=== PATIENT | female | born 1975 | race Caucasian/White ===

== ENCOUNTER 2018-12-06 19:28 | Emergency (ER) | payer OTHER ==
[2018-12-06 19:53] LABS: Pregnancy Test - Urine (BHCG) Negative (Negative); Pregu Control Background? CLEAR/WHITE (CLR/WHITE); Pregu Control Bar Appear? YES (CONTROL BAR); Specific Gravity 1.008 (1.002-1.036)
--- NOTE | 2018-12-06 20:51 | CT ---
CT PELVIS WITHOUT CONTRAST 12/06/18 Axial slices were acquired, then coronal and sagittal reconstructions were done. There is a fracture through the left sacral ala of S1. It is vertically oriented and does not appear to involve the foramen. The fragments are relatively nondisplaced. One of the fracture lines does ext end slightly into S1. The SI joints are symmetrical and show no widening. The pubic symphysis shows no widening. The pubic rings appear intact. The proximal right femur appears normal. There is a left hip arthroplasty. IMPRESSION: Acute vertical fracture of the left sacral ala of S1 with slight extension into S2. Findings discussed with Dr. Virgen at 2030 on 12/06/18. POS: HOME
--- NOTE | 2018-12-06 20:57 | CT ---
CT LUMBAR SPINE 12/06/[address] of the lumbar spine was done following trauma. Axial slices were acquired, then coronal and sagittal reconstructions were done. The patient has rotoscoliosis, convexed right. No fractures of the lumbar spine proper were seen. No focal disc herniations or foraminal stenosis was seen. No focal disc herniations or foraminal stenosi s was seen. There is some mild central canal stenosis at L4-L5 due to a concentric bulge of the disc and some mild facet and ligamentous hypertrophy. There is some mild concentric bulging of the L5-S1 d isc. A fracture through the left sacral ala of S1 is present with little displacement. The foramina do not appear involved. Some images show a minimal extension into S2. There is no sign of pelvic hematoma or free fluid of concern. IMPRESSION: 1. Fracture of the left sacral ala of S1 with minimal displacement. Minor extension into S2. 2. Mild central canal stenosis at L4-L5. Findings discussed with Dr. Virgen at 2030 on 12/06/18. POS: HOME
[2018-12-06] MEDS ORDERED: Acetaminophen/Codeine 30-300mg Tablet ONE (21:01)
[2018-12-06] MEDS ORDERED: Ondansetron ODT 4 MG TAB ONE (21:01)
[2018-12-06 22:38] LABS: Bilirubin Negative (Negative); Blood, Urine Negative (Negative); Clarity Clear (Clear); Glucose, Urine (Dipstick) Negative (Negative); Leukocyte Trace (Negative); Nitrite Negative (Negative); Protein, Urine (Dipstick) Negative (Neg-Trace); Specific Gravity, Urine 1.015 (1.005-1.030); Urobilinogen 0.2 mg/dL (0.2-1.0); pH, Urine 8.5 (5.0-9.0)
[2018-12-06 22:39] LABS: Urine Culture Reflex No No
[2018-12-06 22:44] LABS: RBC/HPF 0-3 HPF (0-3); Squamous Epithelial 0-3 HPF (0-3); WBC/HPF 0-3 HPF (0-3)
== END 2018-12-06 22:08 | disposition home or self-care (01) ==
LOC: BURERS 19:28
DX: S32.10XA Unspecified fracture of sacrum, initial encounter for closed fracture (principal); V86.99XA Unspecified occupant of other special all-terrain or other off-road motor vehicle injured in nontraffic accident, initial encounter
CPT/HCPCS: 72131; 72192; 81001; 81025; Q0162